=== PATIENT | female | born 1975 | race Caucasian/White ===

== ENCOUNTER 2018-10-25 15:00 | Outpatient (CLI) | payer BC ==
--- NOTE | 2018-10-27 06:57 | Mammography Report ---
Reason: ANNUAL SCREENING Procedure Date: 10/25/2018 Accession Number: [id number] / [id number] Procedure: KIET - Screening Mammo w/Gt CPT Code: FULL RESULT: EXAM: Screening Mammo w/Gt DATE: 10/25/2018 3:46 PM CLINICAL HISTORY: 43-year-old female with history of early menses for screening. TECHNIQUE: Bilateral CC and MLO views were obtained. COMPARISON: Baseline mammogram. FINDINGS: The breasts demonstrate extremely dense parenchyma bilaterally, limiting the sensitivity of mammography. No suspicious masses, clustered microcalcifications, or regions of architectural distortion are identified. IMPRESSION: Negative examination RECOMMENDATION: Routine annual screening unless otherwise clinically indicated. BIRADS CATEGORY 1: Negative STANDARD QUALIFYING STATEMENTS: 1. This examination was not reviewed with the aid of Computer-Aided Detection (CAD). 2. A negative or benign imaging report should not delay biopsy if clinically suspicious findings are present. 3. Dense breasts may obscure an underlying neoplasm. 4. This examination was reviewed with the aid of 3D breast imaging (tomosynthesis).
== END 2018-10-25 15:01 | disposition home or self-care (01) ==
LOC: DI 15:00
DX: Z12.31 Encounter for screening mammogram for malignant neoplasm of breast (principal)
CPT/HCPCS: 77063; 77067

== ENCOUNTER 2020-02-04 08:00 | Outpatient (CLI) | payer SELFPAY ==
[2020-02-05 22:05] LABS: TRICHOMONAS VAGINALIS DNA NEGATIVE (NEGATIVE)
[2020-02-06 02:34] LABS: CANDIDA KRUSEI DNA INDETERMINATE ERROR (NEGATIVE)
[2020-02-06 02:35] LABS: CANDIDA GROUP DNA INDETERMINATE ERROR (NEGATIVE); TRICHOMONAS VAGINALIS DNA INDETERMINATE ERROR (NEGATIVE)
== END 2020-02-04 23:59 | disposition home or self-care (01) ==
LOC: LAB.R 08:00
PROVIDERS: ATTEND Obstetrics & Gynecology
DX: Z91.89 Other specified personal risk factors, not elsewhere classified (principal)
CPT/HCPCS: 87491; 87591; 87661; 87801

== ENCOUNTER 2020-05-19 12:52 | Outpatient (CLI) | payer OTHER, MEDICAID ==
[2020-05-19 20:29] LABS: PROLACTIN 5.78 ng/mL
[2020-05-19 20:52] LABS: FOLLICLE STIMULATING HORMONE 118.59 mIU/mL
== END 2020-05-19 12:53 | disposition home or self-care (01) ==
LOC: LAB.S 12:52
PROVIDERS: ATTEND Obstetrics & Gynecology
DX: E28.39 Other primary ovarian failure (principal)
CPT/HCPCS: 36415; 81599; 82670; 83001; 83498; 83520; 84146; 84403